=== PATIENT | female | born 1975 | race Hispanic/Latino ===

== ENCOUNTER → 2025-07-01 | Outpatient (CLI) | payer BC ==
[~2025-07-01] MED LIST: IOHEXOL-350 75 ML VIAL IV ONE
--- NOTE | 2025-07-01 23:53 | HMCIMG ---
EXAM: CT SCAN OF THE ABDOMEN WITH AND WITHOUT CONTRAST (THREE-PHASE STUDY) Clinical statement: Fatty liver. STUDY PROTOCOL: CT radiation dose protocol was performed in accordance with the principles of ALARA. A multislice three-phase CT scan of the abdomen was performed before and after intravenous contrast administration, with additional excretory phase imaging. Oral contrast was also administered. Sections were obtained from the diaphragms through the abdomen. RADIATION DOSE: CTDIvol 129.20 mGy; DLP 4714.40 mGycm. CONTRAST: Intravenous and oral contrast administered. COMPARISON: CT scan of the abdomen and pelvis with contrast from 03/26/2016 at 00:40. FINDINGS: LUNG BASES: Visualized lung bases are clear of consolidation or collapse. Trace right pleural effusion is present. No left pleural effusion is identified. LIVER: Liver is enlarged, measuring approximately 20 cm in craniocaudal dimension, with preserved smooth contour. Parenchymal attenuation is diffusely decreased with homogeneous enhancement pattern, consistent with hepatic steatosis. No focal hepatic lesion or intrahepatic calcification is identified. No intrahepatic biliary ductal dilatation. Portal vein, hepatic veins, and inferior vena cava are patent and normal in caliber. GALLBLADDER AND BILIARY TREE: Status post cholecystectomy. No ductal dilatation of the extrahepatic biliary tree. PANCREAS: Normal in size, contour, and enhancement. No main pancreatic duct dilatation, peripancreatic fat stranding, or fluid collection. SPLEEN: Spleen is enlarged, measuring approximately 15 cm in length, with homogeneous enhancement and no focal splenic lesion. ADRENAL GLANDS: Right and left adrenal glands are normal in size and morphology without focal nodule. KIDNEYS AND URETERS: Kidneys enhance symmetrically without focal renal mass, nephrolithiasis, or hydronephrosis. Visualized ureters are normal in caliber without filling defect on excretory phase images. URINARY BLADDER: Bladder is appropriately distended with smooth contour and no wall thickening or intraluminal filling defect. STOMACH AND SMALL BOWEL: Stomach is decompressed to mildly distended without focal wall thickening. Small bowel loops are normal in caliber without evidence of obstruction or abnormal mural thickening. PERITONEUM AND MESENTERY: No free intraperitoneal air, free fluid, or mesenteric edema. No peritoneal or mesenteric mass. LYMPH NODES: No pathologically enlarged abdominal or pelvic lymph nodes are identified. VASCULATURE: Abdominal aorta and major branches are normal in course and caliber without aneurysm or dissection. Portal vein, hepatic veins, and inferior vena cava are patent. No evidence of portal venous thrombosis. OSSEOUS STRUCTURES AND SOFT TISSUES: No acute osseous abnormality or suspicious osseous lesion. Visualized abdominal wall and paraspinal soft tissues are unremarkable. IMPRESSION: * Stable hepatomegaly (liver length 20 cm) with diffuse hepatic steatosis and homogeneous enhancement, without focal hepatic lesion or biliary obstruction. Recommend correlation with liver enzymes, metabolic risk factors (obesity, diabetes, dyslipidemia, alcohol use), and noninvasive fibrosis assessment; in the absence of additional high-risk features, management should emphasize metabolic risk modification rather than cirrhosis-directed surveillance. * Stable splenomegaly (spleen length 15 cm) with homogeneous enhancement and no focal lesion; correlate with clinical evaluation for chronic liver disease/portal hypertension and hematologic or systemic causes. * Trace right pleural effusion, new compared with the prior study, nonspecific and potentially related to volume status or cardiopulmonary comorbidity; correlate clinically. * Otherwise unremarkable three-phase CT of the abdomen without renal mass, hydronephrosis, bowel obstruction, or intra-abdominal inflammatory process. * Compared with the CT abdomen and pelvis with contrast from 03/26/2016 at 00:40, hepatic steatosis with hepatomegaly and splenomegaly are unchanged, with new trace right pleural effusion and no new focal hepatic or intra-abdominal lesion identified. /Antonio
== END | disposition home or self-care (01) ==
LOC: RAH 09:04
PROVIDERS: ATTEND Internal Medicine Gastroenterology
DX: K76.0 Fatty (change of) liver, not elsewhere classified (principal); R16.2 Hepatomegaly with splenomegaly, not elsewhere classified; J90 Pleural effusion, not elsewhere classified; Z90.49 Acquired absence of other specified parts of digestive tract
CPT/HCPCS: 74170; Q9967